=== PATIENT | male | born 1985 | race Caucasian/White ===

== ENCOUNTER 2024-08-01 07:18 | Emergency (ER) | payer MEDICAID ==
[~2024-08-01] VITALS: Ht 182.9 cm; Wt 85.0 kg
[2024-08-01 07:30] VITALS: O2SAT 98
[2024-08-01 09:12] LABS: BASOPHILS % 1.4 % (0.0-2.0); EOSINOPHILS % 1.5 % (0.0-5.0); HEMATOCRIT. 45.4 % (42.0-52.0); HEMOGLOBIN. 14.9 g/dL (14.0-18.0); LYMPHOCYTES % 21.5 % (20.0-50.0); MEAN CORPUSCULAR HEMOGLOBIN 30.4 pg (28.0-32.0); MEAN CORPUSCULAR HGB CONC 32.8 g/dL (31.0-37.0); MEAN CORPUSCULAR VOLUME 92.8 fL (80.0-94.0); MEAN PLATELET VOLUME 7.6 fl (7.4-10.4); NEUTROPHILS % 64.6 % (40.0-76.0); PLATELET 291 x1000/uL (130-400); RED BLOOD CELL COUNT 4.89 mill/uL (4.7-6.1); RED CELL DISTRIBUTION WIDTH 13.1 % (11.6-14.6); WHITE BLOOD COUNT 6.3 x1000/uL (4.5-11.0)
[2024-08-01 09:21] LABS: CHLORIDE 107 mEq/L (98-107); POTASSIUM 3.9 mEq/L (3.5-5.1); SODIUM 142 mEq/L (136-145)
[2024-08-01 09:22] LABS: CALCIUM 9.2 mg/dL (8.7-10.4); CARBON DIOXIDE 30 mEq/L (21-32)
[2024-08-01 09:27] LABS: CREATININE 1.3 mg/dL (0.6-1.3); GLUCOSE 86 mg/dL (70-105); UREA NITROGEN BLOOD 10 mg/dL (9-23)
[2024-08-01 09:30] LABS: INR 0.9; PROTHROMBIN TIME 10.3 sec (9.6-11.0)
[2024-08-01 09:59] VITALS: BP 134/72; PULSE 71; RESP 17; TEMP 36.89184; O2SAT 99
== END 2024-08-01 10:00 | disposition home or self-care (01) ==
LOC: ER 07:45
DX: K62.5 Hemorrhage of anus and rectum (principal)
CPT/HCPCS: 36415; 80048; 85025; 86850; 86900; 99283

== ENCOUNTER 2024-08-20 18:58 | Emergency (ER) | payer MEDICAID ==
[~2024-08-20] VITALS: Ht 185.4 cm; Wt 83.0 kg
[2024-08-20 19:00] VITALS: O2SAT 100
[2024-08-20 19:40] VITALS: TEMP 99.2
[2024-08-20] MEDS: ACETAMINOPHEN 325MG TABLET PO ONE (19:40)
[2024-08-20] MEDS ORDERED: AMOX1TAB16 MT (20:02)
[2024-08-20] MEDS ORDERED: TOPUD PO (20:02)
[2024-08-20 20:20] VITALS: BP 136/97; PULSE 86; RESP 16; O2SAT 97
== END 2024-08-20 20:20 | disposition home or self-care (01) ==
LOC: ER 18:58
DX: J01.90 Acute sinusitis, unspecified (principal)
CPT/HCPCS: 99283